=== PATIENT | male | born 1980 | race Asian ===

== ENCOUNTER 2018-08-22 15:21 | Emergency (ER) | payer MEDICAID, SELFPAY ==
--- NOTE | 2018-08-22 15:23 | W.ED.GENAD ---
Discharge Plan Disposition Patient Disposition: HOME Condition: Stable Discharge Details Chief Complaint: RespSymp Clinical Impression: Flu-like symptoms Primary Care Provider: Jordy Patel ED Provider: Sergey Patel Home Meds and New Rx's Prescriptions: No Action No Known Home Meds RF: 0 Discharge Instructions Additional Instructions: Drink fluids to stay hydrated you can take 1000mg tylenol and 600mg ibuprofen every 6 hours for pain/fevers as needed if not better by next week see your primary care provider if you feel you are becoming more ill return to the emergency department Medical Decision Making 38 yo male who denies chronic medical problems comes in with family (who interpret for him given language barrier) for 4 days of myalgias, headaches, sore throat, subjective fevers and chills. Denies recent travel, rashes, vomit, no ivdu. No murmurs on exam and HR 90. Has clear lung sounds bilaterally, clear rhinorrhea, normal tm's. I suspect influenza, do not feel testing indicated given not candidate for treatment given 4 days of symptoms. 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 No fever and normal lung sounds so doubt pna and do not feel abx or cxr indicated at this time. Advised f/u with pcp next week if symptoms continue and return if worsening Differential Diagnosis influenza, viral illness, pna HPI General Mode of arrival: ambulatory. Date/Time Provider Initiated Documentation: 08/22/18 15:23. Limitations to Documentation: no limitations. Information obtained by: patient and family. History of Present Illness 38 year old M presents to the emergency department with the chief complaint of myalgias, sore throat, cough, described as moderate, and is localized to the head, mouth, upper extremity and lower extremity. Patient started experiencing this day(s) (4) No relieving factors improve symptom(s), No exacerbating factors reported . Patient did receive the following treatments prior to arrival, none Related Data Home Medications Medication Instructions Recorded Confirmed Unknown [No Known Home Meds] 11/19/13 08/22/18 Allergies Allergy/AdvReac Type Severity Reaction Status Date / Time No Known Allergies Allergy Unverified 08/22/18 15:31 Review of Systems Review of Systems All systems reviewed & are unremarkable except as noted in HPI and below Constitutional Denies weakness ENT Denies change in voice Cardiovascular Denies chest pain and Denies dyspnea Respiratory Denies dyspnea Gastrointestinal Denies abdominal pain, Denies nausea and Denies vomiting Genitourinary Denies dysuria Musculoskeletal Denies joint swelling Neurologic Denies weakness Endocrine Denies heat intolerance [facility] Social History Smoking/Tobacco Use Status: Never Exam Const General: no acute distress Orientation: alert HENMT Head: normal to inspection Ears: external ears normal General nose exam: external nose normal Mouth: moist mucous membranes Eyes General: appearance normal, both eyes and all related structures Neck Neck: normal visual inspection Resp Effort & Inspection: normal respiratory effort and able to speak in complete sentences Cardio Rate: regular rate Skin General skin exam: no rashes or lesions noted Neuro General: alert and oriented x3 Extrem General: normal to inspection Psych Mental Status: mental status grossly normal
[2018-08-22 15:27] VITALS: BP 142/90; PULSE 102; RESP 16; TEMP 37; O2SAT 97
--- NOTE | 2018-08-22 15:41 | ED.GENADUL_ITS ---
Discharge Plan Disposition Patient Disposition: HOME Condition: Stable Discharge Details Chief Complaint: RespSymp Clinical Impression: Flu-like symptoms Primary Care Provider: Jordy Patel ED Provider: Sergey Patel Home Meds and New Rx's Prescriptions: No Action No Known Home Meds RF: 0 Discharge Instructions Additional Instructions: Drink fluids to stay hydrated you can take 1000mg tylenol and 600mg ibuprofen every 6 hours for pain/fevers as needed if not better by next week see your primary care provider if you feel you are becoming more ill return to the emergency department Medical Decision Making 38 yo male who denies chronic medical problems comes in with family (who interpret for him given language barrier) for 4 days of myalgias, headaches, sore throat, subjective fevers and chills. Denies recent travel, rashes, vomit, no ivdu. No murmurs on exam and HR 90. Has clear lung sounds bilaterally, clear rhinorrhea, normal tm's. I suspect influenza, do not feel testing indicated given not candidate for treatment given 4 days of symptoms. 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 No fever and normal lung sounds so doubt pna and do not feel abx or cxr indicated at this time. Advised f/u with pcp next week if symptoms continue and return if worsening Differential Diagnosis influenza, viral illness, pna HPI General Mode of arrival: ambulatory . Date/Time Provider Initiated Documentation: 08/22/18 15:23 . Limitations to Documentation: no limitations . Information obtained by: patient and family . History of Present Illness 38 year old M presents to the emergency department with the chief complaint of myalgias, sore throat, cough, described as moderate, and is localized to the head, mouth, upper extremity and lower extremity. Patient started experiencing this day(s) (4) No relieving factors improve symptom(s), No exacerbating factors reported . Patient did receive the following treatments prior to arrival, none Related Data Home Medications Medication Instructions Recorded Confirmed Unknown [No Known Home Meds] 11/19/13 08/22/18 Allergies Allergy/AdvReac Type Severity Reaction Status Date / Time No Known Allergies Allergy Unverified 08/22/18 15:31 Review of Systems Review of Systems All systems reviewed & are unremarkable except as noted in HPI and below Constitutional Denies weakness ENT Denies change in voice Cardiovascular Denies chest pain and Denies dyspnea Respiratory Denies dyspnea Gastrointestinal Denies abdominal pain, Denies nausea and Denies vomiting Genitourinary Denies dysuria Musculoskeletal Denies joint swelling Neurologic Denies weakness Endocrine Denies heat intolerance [facility] Social History Smoking/Tobacco Use Status: Never Exam Const General: no acute distress Orientation: alert HENMT Head: normal to inspection Ears: external ears normal General nose exam: external nose normal Mouth: moist mucous membranes Eyes General: appearance normal, both eyes and all related structures Neck Neck: normal visual inspection Resp Effort & Inspection: normal respiratory effort and able to speak in complete sentences Cardio Rate: regular rate Skin General skin exam: no rashes or lesions noted Neuro General: alert and oriented x3 Extrem General: normal to inspection Psych Mental Status: mental status grossly normal
[2018-08-22 15:44] VITALS: BP 142/90; PULSE 102; RESP 16; TEMP 37; O2SAT 97
== END 2018-08-22 15:47 | disposition home or self-care (01) ==
LOC: ER 16:08
PROVIDERS: Emergency Provider Emergency Medicine; PCP Family Medicine
DX: J11.1 Influenza due to unidentified influenza virus with other respiratory manifestations (principal)
CPT/HCPCS: 99282

== ENCOUNTER 2019-06-18 08:41 | Outpatient (CLI) | payer MEDICAID, SELFPAY ==
[2019-06-18 10:18] LABS: ALT 74 U/L (16-63); AST 33 U/L (15-37); Albumin 4.2 g/dL (3.4-5.0); Alkaline Phosphatase 84 U/L (46-116); Anion Gap 8.3 mmol/L (3-11); BUN 14 mg/dL (7-18); Bilirubin, Total 0.4 mg/dL (0.2-1.0); CO2 28.7 mmol/L (21.0-32.0); CREATININE 0.72 mg/dL (0.70-1.30); Calcium 8.8 mg/dL (8.5-10.1); Chloride 104 mmol/L (98-107); Glucose 97 mg/dL (70-100); Potassium 4.5 mmol/L (3.5-5.1); Sodium 141 mmol/L (136-145); Total Protein 7.9 g/dL (6.4-8.2)
== END 2019-06-18 09:01 ==
PROVIDERS: PCP Family Medicine; Visit Provider Nurse Practitioner Adult Health
DX: B18.1 Chronic viral hepatitis B without delta-agent (principal)
CPT/HCPCS: 36415; 80053